=== PATIENT | male | born 2000 | race Caucasian/White ===

== ENCOUNTER 2021-06-19 03:03 | Emergency (ER) | payer OTHER ==
[~2021-06-19] VITALS: Ht 165.1 cm; Wt 67.2 kg
[2021-06-19] MEDS ORDERED: IBUPROFEN 600MG TABLET PO ONE (05:00)
[2021-06-19] MEDS ORDERED: ACETAMINOPHEN 325MG TABLET PO ONE (05:00)
[2021-06-19] MEDS ORDERED: NAPR-1176 MT (06:47)
[2021-06-19] MEDS ORDERED: TOPUD MT (06:47)
[2021-06-19 07:17] VITALS: BP 110/77
== END 2021-06-19 07:20 | disposition home or self-care (01) ==
LOC: ER 03:03
DX: R07.89 Other chest pain (principal); M54.50 Low back pain, unspecified; V43.62XA Car passenger injured in collision with other type car in traffic accident, initial encounter; Y93.89 Activity, other specified; Y92.410 Unspecified street and highway as the place of occurrence of the external cause
CPT/HCPCS: 71045; 99283